=== PATIENT | male | born 1975 | race Caucasian/White ===

== ENCOUNTER → 2019-05-03 | Outpatient (CLI) | payer BC | LOC: M.RAD 10:17 | DX: J98.4 Other disorders of lung (principal); R05 Cough; Z87.891 Personal history of nicotine dependence ==

== ENCOUNTER → 2019-06-03 | Outpatient (CLI) | payer BC | LOC: M.CT 12:40 | DX: R05 Cough (principal); R06.2 Wheezing; K44.9 Diaphragmatic hernia without obstruction or gangrene; F17.200 Nicotine dependence, unspecified, uncomplicated ==